=== PATIENT | female | born 1990 | race Caucasian/White ===

== ENCOUNTER 2020-03-29 15:50 | Emergency (ER) | payer OTHER ==
[2020-03-29 16:16] VITALS: TEMP 99.1
--- NOTE | 2020-03-29 16:42 | RAD ---
EXAM DESCRIPTION: Knee,Left Complete CLINICAL HISTORY: fall with c/o left knee pain. COMPARISON: None. IMPRESSION: 3 views of the left knee show no acute fracture, focal bone destruction, or joint dislocation. Soft tissues are unremarkable. No joint effusion. Electronically signed by: Melvin Ibaenz MD 03/29/2020 4:40 PM CDT
--- NOTE | 2020-03-29 16:50 | ED.PDOC ---
History of Present Illness - General Chief Complaint: Lower Extremity Injury Stated Complaint: knee pain from fall 2 weeks ago Time Seen by Provider: 03/29/20 16:18 Source: patient, RN notes reviewed, Vital Signs reviewed Exam Limitations: no limitations - History of Present Illness Initial Comments: Patient is a 29-year-old morbidly obese white female who presents with complai nts of left knee pain. This pain started 2 weeks ago after a fall. Patient is trying to nurse this at home with ice, heat and Tylenol/Motrin. The pain is not getting any better. Pain is worse when she attempts to walk on that leg. Patient is unable to completely flex or extend the knee. There is no clicking in the knee per the patient. The pain is stabbing/burning in nature. Nothing seems to improve it. It is now radiating up into her thigh and down into her foot. Occurred: other - 2 weeks ago Pain - Lower Extremity: mild: Left Thigh/Hip, Left Leg, Left Calf, severe: Left Knee Method of Injury: fell Improving Factors: nothing Worsening Factors: movement Allergies/Adverse Reactions: Allergies Iodide Adverse Reaction (Verified 03/29/20 16:16) Home Medications: Ambulatory Orders Tramadol HCl [Ultram] 50 mg PO Q6H #20 tab 03/29/20 Review of Systems - Review of Systems Constitutional: States: no symptoms reported, see HPI. Denies: chills, fever, malaise EENTM: States: no symptoms reported Respiratory: States: no symptoms reported. Denies: cough, short of breath Cardiology: States: no symptoms reported. Denies: chest pain, palpitations, syncope Gastrointestinal/Abdominal: States: no symptoms reported. Denies: abdominal xin n, diarrhea, nausea Musculoskeletal: States: see HPI, joint pain - Left knee. Denies: back pain, neck pain Skin: States: no symptoms reported. Denies: change in color, rash Neurological: States: no symptoms reported. Denies: numbness, paresthesia, tingling, weakness Endocrine: States: no symptoms reported Hematologic/Lymphatic: States: no symptoms reported All other Systems: No Change from Baseline Past Medical History (General) - Patient Medical History Hx Hypertension: Yes Hx Thyroid Disease: Yes Hx Diabetes: Yes Hx Cancer: No Hx Hepatitis C: No Surgical History: cholecystectomy, tonsillectomy - Vaccination History Hx Tetanus, Diphtheria Vaccination: No Hx Influenza Vaccination: No Hx Pneumococcal Vaccination: No Immunizations Up to Date: No - Social History Hx Tobacco Use: No Hx Alcohol Use: No Hx Substance Use: No Hx Substance Use Treatment: No Family Medical History - Family History Mother Family History: Unknown Physical Exam - Physical Exam General Appearance: Alert, Anxious, Well Developed, Well Groomed, Well Hydrated, Well Nourished Eyes, Ears, Nose, Throat: PERRL/EOMI, normal ENT inspection, pharynx normal Neck: non-tender, full range of motion, supple, normal inspection Cardiovascular/Respiratory: regular rate, rhythm, normal peripheral pulses, normal breath sounds, no respiratory distress Gastrointestinal/Abdominal: non-tender, other - Morbidly obese Back: normal inspection, no CVA tenderness, no vertebral tenderness Thigh/Hip: normal inspection, non-tender Leg: normal inspection, non-tender Knee: bone tenderness - Over the inferior knee and lateral knee., limited ROM, pain, soft tissue tenderness Ankle: normal inspection, non-tender Foot: normal inspection, non-tender Neuro/Tendon: normal sensation, normal motor functions, normal tendon functions, responds to pain Mental Status: alert, oriented x 3 Skin: normal color, warm/dry Progress - Progress Progress: Differential diagnosis: Knee sprain, knee contusion, ligament tear, cartilage tear among others. 03/29/20 17:02 Discussed with patient the need for outpatient MRI. Will discharge patient home with a prescription for Ultram. I would recommend to patient that she obtain this MRI quickly. Patient voices agreement and understanding with the plan of care. Derek Gary M.D. #[id number] - Results/Orders Results/Orders: EXAM DESCRIPTION: Knee,Left Complete CLINICAL HISTORY: fall with c/o left knee pain. COMPARISON: None. IMPRESSION: 3 views of the left knee show no acute fracture, focal bone destruction, or joint dislocation. Soft tissues are unremarkable. No joint effusion. Electronically signed by: Melvin Ibanez MD 03/29/2020 4:40 PM CDT Vital Signs 03/29/20 16:04 Temperature 99.1 F Pulse Rate [ 110 H monitor] Respiratory 18 Rate Blood Pressure 144/103 [LFA] O2 Sat by Pulse 98 Oximetry Departure - Departure Clinical Impression: Left knee sprain Qualifiers: Encounter type: initial encounter Involved ligament of knee: lateral collateral ligament Qualified Code(s): S83.422A - Sprain of lateral collateral ligament of left knee, initial encounter Contusion of knee, left Qualifiers: Encounter type: initial encounter Qualified Code(s): S80.02XA - Contusion of left knee, initial encounter Time of Disposition: 17:07 Disposition: Discharge to Home or Self Care Condition: Good Departure Forms: ED Discharge - Pt. Copy, Patient Portal Self Enrollment Instructions: DI for Knee Pain Diet: resume usual diet Activity: increase activity as tolerated, no pushing/pulling with affected limb Referrals: Arpita Oneill MD [Primary Care Provider] - 1-5 Days Prescriptions: Tramadol HCl [Ultram] 50 mg PO Q6H #20 tab Home Medications: Ambulatory Orders Tramadol HCl [Ultram] 50 mg PO Q6H #20 tab 03/29/20
[2020-03-29] MEDS ORDERED: traMADol HCL 50 MG TAB PO ONE (17:08)
[2020-03-29 17:20] VITALS: BP 149/94; O2SAT 95
== END 2020-03-29 17:23 | disposition home or self-care (01) ==
LOC: ER 15:50
DX: S83.422A Sprain of lateral collateral ligament of left knee, initial encounter (principal); S80.02XA Contusion of left knee, initial encounter; E10.9 Type 1 diabetes mellitus without complications; E66.01 Morbid (severe) obesity due to excess calories; I10 Essential (primary) hypertension; W19.XXXA Unspecified fall, initial encounter; Y92.9 Unspecified place or not applicable

== ENCOUNTER → 2020-03-29 | Outpatient (CLI) | payer OTHER | LOC: YCFC.O 15:29 | PROVIDERS: ATTEND Family Medicine | DX: Z13.9 Encounter for screening, unspecified (principal) ==

== ENCOUNTER → 2021-01-02 | Outpatient (CLI) | payer OTHER | LOC: YCFC.O 11:12 | PROVIDERS: ATTEND Family Medicine | DX: E11.42 Type 2 diabetes mellitus with diabetic polyneuropathy (principal); E11.65 Type 2 diabetes mellitus with hyperglycemia; E78.5 Hyperlipidemia, unspecified; I10 Essential (primary) hypertension; E03.9 Hypothyroidism, unspecified ==